=== PATIENT | female | born 1960 | race Caucasian/White ===

== ENCOUNTER 2017-02-07 13:36 | Emergency (ER) | payer OTHER | END 2017-02-07 14:33 | disposition home or self-care (01) | LOC: ER 13:36 | DX: M54.5 Low back pain (principal); K21.9 Gastro-esophageal reflux disease without esophagitis; Z98.51 Tubal ligation status; V49.50XA Passenger injured in collision with unspecified motor vehicles in traffic accident, initial encounter ==